=== PATIENT | female | born 1950 | race Caucasian/White ===

== ENCOUNTER 2023-03-02 16:54 | Emergency (ER) | payer MEDICARE, BC ==
[~2023-03-02] VITALS: Ht 165.1 cm; Wt 63.5 kg
[~2023-03-02 16:54] MED LIST: ALPRAZOLAM0.5 MG; Aspir 8181 MG PO; FLONASE ALLERG9.9 ML; LEVSOD100 PO; LIOT5 PO; PRAV20 PO
[2023-03-02 17:41] LABS: BASOPHILS ABSOLUTE AUTO 0.04 K/mm3 (0.00-0.23); BASOPHILS PERCENT AUTO 1 % (0-2); EOSINOPHILS ABSOLUTE AUTO 0.31 K/mm3 (0.00-0.68); EOSINOPHILS PERCENT AUTO 5 % (0-6); Hematocrit 41.9 % (33.0-51.0); IMMATURE GRAN ABSOLUTE AUTO 0.02 K/mm3 (0.00-0.10); IMMATURE GRAN PERCENT AUTO 0 % (0-1); LYMPHOCYTES ABSOLUTE AUTO 1.34 K/mm3 (0.84-5.20); LYMPHOCYTES PERCENT AUTO 22 % (21-46); MONOCYTES ABSOLUTE AUTO 0.45 K/mm3 (0.16-1.47); MONOCYTES PERCENT AUTO 8 % (4-13); Mean Corpuscular HGB 29.3 pg (26.0-34.0); Mean Corpuscular HGB Conc 33.4 g/dL (31.5-36.5); Mean Corpuscular Volume 88 fL (80-100); Mean Platelet Volume 10.5 fL (9.1-12.4); NEUTROPHILS ABSOLUTE AUTO 3.83 K/mm3 (1.96-9.15); NEUTROPHILS PERCENT AUTO 64 % (41-73); Platelet Count 200 K/mm3 (150-400); RDW Standard Deviation 41.8 fL (35.1-46.3); Red Blood Cell Count 4.78 M/mm3 (3.80-5.20); White Blood Cell Count 5.99 K/mm3 (4.00-11.30)
[2023-03-02 17:49] LABS: Albumin, Blood 3.9 g/dL (3.4-5.0); Albumin/Globulin Ratio 1.2 (0.8-1.8); Bilirubin, Total 0.6 mg/dL (0.1-1.0); Bun/Creatinine Ratio 20.5 (12.0-20.0); Calcium, Blood 9.2 mg/dL (8.5-10.1); Creatinine, Blood 0.93 mg/dL (0.40-1.00); Globulin, Blood 3.3 g/dL (2.2-4.0); Potassium, Blood 4.2 mmol/L (3.5-5.5); Total Protein, Blood 7.2 g/dL (6.4-8.2)
[2023-03-02 18:23] LABS: Free Thyroxine 1.17 ng/dL (0.70-1.60)
[2023-03-02 18:25] LABS: Thyroid Stimulating Hormone 1.02 uIU/mL (0.360-4.800)
[2023-03-02 18:49] LABS: Source, Urine Clean Catch
[2023-03-02 19:01] LABS: Appearance, Urine Clear (Clear); Bilirubin, Urine Neg (Neg); Blood, Urine Neg (Neg); Color, Urine Yellow (P-Yellow); Glucose Qualitative, Urine Neg (Neg); Ketones, Urine 1+ (Neg); Leukocyte Esterase, Urine Neg (Neg); Nitrite, Urine Neg (Neg); Protein, Urine 1+ (Neg); Specific Gravity, Urine 1.015 (1.003-1.022); Urobilinogen, Urine NORM (Normal)
[2023-03-02 19:22] LABS: U Amphetamine Screen Not Detected; U Barbituate Screen Not Detected; U Benzodiazapine Screen DETECTED; U Buprenorphine Screen Not Detected; U Cannabinoids Screen Not Detected; U Cocaine Screen Not Detected; U Methadone Screen Not Detected; U Methamphetamine Screen Not Detected; U Opiates Screen Not Detected; U Oxycodone Screen DETECTED; U Phencyclidine Screen Not Detected; U Propoxyphene Screen Not Detected
[2023-03-02 22:56] VITALS: BP 146/80
[2023-03-02 23:55] LABS: Influenza A, PCR NEGATIVE (NEGATIVE); Influenza B, PCR NEGATIVE (NEGATIVE); Resp Syncytial Virus, PCR NEGATIVE (NEGATIVE); SARS-Cov-2 (COVID-19) PCR, MMC NEGATIVE (NEGATIVE)
== END 2023-03-02 22:30 | disposition short-term general hospital (02) ==
LOC: ER 16:54
PROVIDERS: Emergency Medicine
DX: I61.1 Nontraumatic intracerebral hemorrhage in hemisphere, cortical (principal); I60.9 Nontraumatic subarachnoid hemorrhage, unspecified; E03.9 Hypothyroidism, unspecified; G93.49 Other encephalopathy; G93.89 Other specified disorders of brain; G93.6 Cerebral edema; E16.2 Hypoglycemia, unspecified; Z79.899 Other long term (current) drug therapy; Z79.82 Long term (current) use of aspirin; Z87.891 Personal history of nicotine dependence; Z20.822 Contact with and (suspected) exposure to COVID-19
CPT/HCPCS: 0241U; 31500; 51702; 70450; 71045; 80053; 82947; 84439; 84443; 84484; 85025; 93005; 93010; 94002; 96361-59; 96365-59; 96375-59; 99291-25; J0330; J1953; J2405; J2704; J3010; J7030; J7050

== ENCOUNTER 2023-08-18 05:47 | Day surgery (SDC) | payer MEDICARE, BC ==
[2023-08-18] VITALS (9 sets, daily range): BP systolic 99–128; BP diastolic 73–96
[~2023-08-18] VITALS: Ht 162.6 cm; Wt 70.7 kg
[~2023-08-18 05:47] MED LIST changes: -ALPRAZOLAM0.5 MG; +ALPRAZOLAM0.5 MG PO; +AMLO5 PO; +DECADRON4 M1 PO; +HYDR25SUP PR; +TAMS.4ER PO
[2023-08-18] MEDS ORDERED: ELIQUIS2.5 M1 PO (06:29)
[2023-08-18] MEDS ORDERED: Keppra250 MG PO (06:39)
[2023-08-18] MEDS ORDERED: [UNRECOGNIZED DRUG - OTHER] PO (07:22)
[2023-08-18] MEDS ORDERED: GLEOSTINE100 MG PO (07:22)
--- NOTE | 2023-08-18 09:17 | NUR ---
Discharge instructions reviewed with patient. Patient verbalizes understanding. Copy given to patient to take home. Patient States Post-Procedure ride home has been arranged. Dressing to procedure site clean, dry, intact with no visible drainage, swelling, erythema or bruising noted. Discharged via wheelchair to private car for ride home.
== END 2023-08-18 23:21 | disposition home or self-care (01) ==
LOC: ORSCMMR 05:47 → ORD 07:30 → ORSCMMR 07:30
PROVIDERS: Surgery
PROC: 0JH63WZ Insertion of Totally Implantable Vascular Access Device into Chest Subcutaneous Tissue and Fascia, Percutaneous Approach (ICD-10-PCS; principal; 2023-08-18 07:30)
PROC: B543ZZA Ultrasonography of Right Jugular Veins, Guidance (ICD-10-PCS; principal; 2023-08-18 07:30)
PROC: 05HM33Z Insertion of Infusion Device into Right Internal Jugular Vein, Percutaneous Approach (ICD-10-PCS; principal; 2023-08-18 07:30)
DX: C71.8 Malignant neoplasm of overlapping sites of brain (principal); E03.9 Hypothyroidism, unspecified; E78.5 Hyperlipidemia, unspecified; Z86.718 Personal history of other venous thrombosis and embolism; Z79.01 Long term (current) use of anticoagulants; Z79.899 Other long term (current) drug therapy; Z87.891 Personal history of nicotine dependence
CPT/HCPCS: 77001; 82947; C1788; J0690; J1642; J2250; J2704; J3010; J7120

== ENCOUNTER 2023-12-29 21:43 | Emergency (ER) | payer MEDICARE, BC ==
[~2023-12-29] VITALS: Ht 165.1 cm; Wt 61.2 kg
[~2023-12-29 21:43] MED LIST changes: +ELIQUIS2.5 M1 PO; +GLEOSTINE100 MG PO; +Keppra250 MG PO; +[UNRECOGNIZED DRUG - OTHER] PO
[2023-12-29] MEDS ORDERED: Cephalexin Monohydrate 500 MG Cap PO ONE (22:55)
[2023-12-29] MEDS ORDERED: Clindamycin HCl 150 MG Cap PO ONE (22:55)
[2023-12-29] MEDS ORDERED: Cefdinir 300 MG Cap PO ONE (22:55)
[2023-12-29] MEDS ORDERED: Cleocin HCl150 MG PO (22:58)
[2023-12-29] MEDS ORDERED: CEFD300 PO (22:58)
[2023-12-29 23:15] VITALS: BP 148/95
== END 2023-12-29 23:23 | disposition home or self-care (01) ==
LOC: ER 21:43
DX: L03.213 Periorbital cellulitis (principal); N18.9 Chronic kidney disease, unspecified; Z87.891 Personal history of nicotine dependence; Z79.51 Long term (current) use of inhaled steroids; Z79.899 Other long term (current) drug therapy
CPT/HCPCS: 99283; A9270

== ENCOUNTER 2024-02-04 05:27 | Day surgery (SDC) | payer MEDICARE, BC ==
[2024-02-03 12:05] LABS: Hematocrit 23.5 % (33.0-51.0); Mean Corpuscular HGB 28.8 pg (26.0-34.0); Mean Corpuscular Volume 85 fL (80-100); RDW Coefficient Variation 17.2 % (11.7-14.2); Red Blood Cell Count 2.78 M/mm3 (3.80-5.20)
[2024-02-03 12:10] LABS: BASOPHILS PERCENT AUTO 0 % (0-2); EOSINOPHILS ABSOLUTE AUTO 0.01 K/mm3 (0.00-0.68); EOSINOPHILS PERCENT AUTO 1 % (0-6); IMMATURE GRAN PERCENT AUTO 0 % (0-1); LYMPHOCYTES ABSOLUTE AUTO 0.11 K/mm3 (0.84-5.20); LYMPHOCYTES PERCENT AUTO 15 % (21-46); MONOCYTES ABSOLUTE AUTO 0.13 K/mm3 (0.16-1.47); MONOCYTES PERCENT AUTO 18 % (4-13); NEUTROPHILS ABSOLUTE AUTO 0.49 K/mm3 (1.96-9.15); NEUTROPHILS PERCENT AUTO 66 % (41-73)
[2024-02-03 12:11] LABS: White Blood Cell Count 0.74 K/mm3 (4.00-11.30)
[2024-02-03 12:12] LABS: Platelet Count 11 K/mm3 (150-400)
[~2024-02-04 05:27] MED LIST changes: +CEFD300 PO; +Cleocin HCl150 MG PO
[2024-02-04] MEDS ORDERED: NS 250 ML IV SCH (06:35)
[2024-02-04] MEDS ORDERED: DiphenhydrAMINE HCl 50 MG/ML 1ML Vial IV PRN (09:20)
[2024-02-04] MEDS ORDERED: DiphenhydrAMINE HCl 50 MG/ML 1ML Vial ONE (09:23)
== END 2024-02-04 10:07 | disposition home or self-care (01) ==
LOC: ATC 05:27 → LAB FUT 02-01 09:05 → EDSTATUS 02-01 09:05
PROVIDERS: Internal Medicine Hematology & Oncology
DX: C71.8 Malignant neoplasm of overlapping sites of brain (principal); E78.5 Hyperlipidemia, unspecified; E03.9 Hypothyroidism, unspecified; Z87.891 Personal history of nicotine dependence; Z79.899 Other long term (current) drug therapy
CPT/HCPCS: 36415; 36430; 85025; 86900; 86901; 96374; J1200; J1642; J7050; P9035

== ENCOUNTER 2024-03-03 07:10 | Day surgery (SDC) | payer MEDICARE, BC ==
[2024-03-02 13:24] LABS: Hematocrit 18.1 % (33.0-51.0); Mean Corpuscular HGB 30.4 pg (26.0-34.0); Mean Corpuscular Volume 95 fL (80-100); Mean Platelet Volume 11.7 fL (9.1-12.4); RDW Coefficient Variation 21.5 % (11.7-14.2); RDW Standard Deviation 72.4 fL (35.1-46.3); Red Blood Cell Count 1.91 M/mm3 (3.80-5.20); White Blood Cell Count 3.48 K/mm3 (4.00-11.30)
[2024-03-02 13:30] LABS: Hemoglobin 5.8 g/dL (11.5-16.0)
[2024-03-02 13:31] LABS: Platelet Count 31 K/mm3 (150-400)
[2024-03-02 13:44] LABS: BAND PERCENT MAN 10 % (0-8); BASOPHILS PERCENT MAN 0 % (0-2); EOSINOPHILS PERCENT MAN 0 % (0-6); LYMPHOCYTES ABSOLUTE MAN 0.31 K/mm3 (0.84-5.20); LYMPHOCYTES PERCENT MAN 9 % (21-46); MONOCYTES ABSOLUTE MAN 0.17 K/mm3 (0.16-1.47); MONOCYTES PERCENT MAN 5 % (4-13); NEUTROPHILS ABSOLUTE MAN 2.99 K/mm3 (1.96-9.15); SEG NEUTROPHILS PERCENT MAN 76 % (41-73); TOTAL CELLS COUNTED 100
[~2024-03-03 07:10] MED LIST changes: +NS 250 ML IV SCH
[2024-03-03 07:49] VITALS: BP 72/56
[2024-03-03 08:10] VITALS: BP 88/65
[2024-03-03 09:27] VITALS: BP 100/68
[2024-03-03 09:51] VITALS: BP 89/66
[2024-03-03 10:46] VITALS: BP 102/72
== END 2024-03-03 11:26 | disposition home or self-care (01) ==
LOC: ATC 07:10 → EDSTATUS 07:30 → ATC 11:26
PROVIDERS: Internal Medicine Hematology & Oncology
DX: C71.8 Malignant neoplasm of overlapping sites of brain (principal); E78.5 Hyperlipidemia, unspecified; E03.9 Hypothyroidism, unspecified; Z87.891 Personal history of nicotine dependence; Z79.01 Long term (current) use of anticoagulants; Z79.890 Hormone replacement therapy; Z79.899 Other long term (current) drug therapy
CPT/HCPCS: 36415; 36430; 85025; 86850; 86900; 86901; 86923; J1642; J7050; P9016